=== PATIENT | female | born 1980 | race Native Hawaiian/Other Pacific Islander ===

== ENCOUNTER 2021-08-20 10:00 | Outpatient (CLI) | payer OTHER | END 2021-08-20 21:07 | disposition home or self-care (01) | LOC: RESP 10:00 | PROVIDERS: ATTEND Internal Medicine | DX: I10 Essential (primary) hypertension (principal); R53.83 Other fatigue; E66.3 Overweight; R00.2 Palpitations | CPT/HCPCS: 93225 ==

== ENCOUNTER 2021-11-21 10:00 | Outpatient (CLI) | payer OTHER | END 2021-11-21 19:59 | disposition home or self-care (01) | LOC: MAMMO 10:00 → US 10:00 → MAMMO 19:59 | PROVIDERS: ATTEND Obstetrics & Gynecology | DX: Z12.31 Encounter for screening mammogram for malignant neoplasm of breast (principal) ==

== ENCOUNTER 2022-11-28 08:55 | Outpatient (CLI) | payer OTHER | END 2022-11-28 18:58 | disposition home or self-care (01) | LOC: MAMMO 08:55 | PROVIDERS: ATTEND Obstetrics & Gynecology | DX: Z12.31 Encounter for screening mammogram for malignant neoplasm of breast (principal) ==

== ENCOUNTER 2023-09-08 11:32 | Outpatient (CLI) | payer OTHER | END 2023-09-08 18:55 | disposition home or self-care (01) | LOC: RESP 11:32 | PROVIDERS: ATTEND Internal Medicine | DX: R00.2 Palpitations (principal); R07.89 Other chest pain | CPT/HCPCS: 93225 ==